=== PATIENT | female | born 1995 ===

== ENCOUNTER → 2021-12-12 11:25 | Outpatient (CLI) | payer BC, SELFPAY ==
[2021-12-12 13:25] LABS: Urine N gonorrhoeae NOT DETECTED
[2021-12-12 13:27] LABS: Urine Chlamydia NOT DETECTED
[2021-12-12 13:44] LABS: Pregnancy Test Urine Negative (Negative)
== END ==
PROVIDERS: Visit Provider Physician Assistant
DX: Z11.3 Encounter for screening for infections with a predominantly sexual mode of transmission (principal); N92.6 Irregular menstruation, unspecified
CPT/HCPCS: 81025; 87491; 87591

== ENCOUNTER → 2022-04-03 14:30 | Outpatient (CLI) | payer BC, SELFPAY ==
[2022-04-03 17:38] LABS: Urine N gonorrhoeae NOT DETECTED
[2022-04-03 17:41] LABS: Urine Chlamydia NOT DETECTED
== END ==
PROVIDERS: Visit Provider Physician Assistant
DX: Z11.3 Encounter for screening for infections with a predominantly sexual mode of transmission (principal); N89.8 Other specified noninflammatory disorders of vagina
CPT/HCPCS: 87210; 87491; 87591

== ENCOUNTER → 2022-11-12 10:15 | Outpatient (CLI) | payer BC, SELFPAY ==
[2022-11-12 13:12] LABS: Influenza A - CEPHEID Flu A NEGATIVE (NEGATIVE); Influenza B - CEPHEID Flu B NEGATIVE (NEGATIVE); Respiratory Syncytial Virus Negative (Negative)
[2022-11-12 13:14] LABS: COVID-19 CEPHEID 4-PLEX PCR Negative (Negative)
== END ==
PROVIDERS: Visit Provider Physician Assistant
DX: J02.9 Acute pharyngitis, unspecified (principal); Z20.822 Contact with and (suspected) exposure to COVID-19
CPT/HCPCS: 0241U; 87070; 87077; 87147; 87185

== ENCOUNTER → 2023-02-28 09:52 | Outpatient (CLI) | payer BC, SELFPAY ==
--- NOTE | 2023-02-28 | DI.RAD.S_ITS ---
PROCEDURE: XR ABDOMEN MIN 2V INDICATIONS: K59.00 TECHNIQUE: 2 views of the abdomen were acquired. COMPARISON: [facility], CT, ABDOMEN/PELVIS WITH CONTRAST, 06/27/2012, 10:20. FINDINGS: Nonobstructive bowel gas pattern. No evidence of pneumoperitoneum. No definite or obvious renal stone identified radiographically. Moderate-large amount of stool in the colon. Lumbosacral fusion changes. IMPRESSION: Nonobstructive bowel gas pattern. Dictated by: Tyler Bacon M.D. on 02/28/2023 at 12:56 Approved by: Tyler Bacon M.D. on 02/28/2023 at 13:01
== END ==
PROVIDERS: PCP Registered Nurse; Referring Provider Registered Nurse; Visit Provider Registered Nurse
DX: K59.00 Constipation, unspecified (principal)
CPT/HCPCS: 74019

== ENCOUNTER 2024-02-11 20:18 | Emergency (ER) | payer BC, SELFPAY ==
[2024-02-11 20:21] VITALS: BP 122/71; PULSE 84; RESP 18; TEMP 36.3; O2SAT 99; BMI 25.0
--- NOTE | 2024-02-11 20:33 | DI.RAD.S_ITS ---
PROCEDURE: XR TIBIA FUBULA RT 2V INDICATIONS: Rt leg injury TECHNIQUE: 2 views of the tibia and fibula were acquired. COMPARISON: None. FINDINGS: Bones: No fractures or dislocations. No suspicious bony lesions. Soft tissues: No suspicious soft tissue calcifications or masses. No radiopaque foreign body. IMPRESSION: No acute bony abnormality. Dictated by: Abimael Shah M.D. on 02/11/2024 at 20:53 Approved by: Abimael Shah M.D. on 02/11/2024 at 20:54
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
== END 2024-02-12 02:56 | disposition home or self-care (01) ==
PROVIDERS: Emergency Provider Emergency Medicine; PCP Registered Nurse
DX: S80.11XA Contusion of right lower leg, initial encounter (principal); V22.49XA Other motorcycle driver injured in collision with two- or three-wheeled motor vehicle in traffic accident, initial encounter
CPT/HCPCS: 73590; 99281; 99282

== ENCOUNTER 2025-01-27 19:48 | Observation (INO) | payer SELFPAY ==
[2025-01-27 20:16] VITALS: BP 132/77; PULSE 73; RESP 22; TEMP 36.5; O2SAT 100; BMI 25.0
--- NOTE | 2025-01-27 20:22 | DI.CT.S_ITS ---
PROCEDURE: CT ABDOMEN PELVIS WO CON INDICATIONS: lower abdominal pain; hx constipation TECHNIQUE: Axial sections were acquired from the lung bases to the pubic symphysis. Coronal and sagittal reformats were performed. For radiation dose reduction, the following was used: automated exposure control, adjustment of mA and/or kV according to patient size. COMPARISON: None. FINDINGS: Image quality: Diagnostic. Lower Chest: No significant findings. URINARY: Right Kidney: No stones or hydronephrosis. Right Ureter: No hydroureter. Left Kidney: No stones or hydronephrosis. Left Ureter: No hydroureter. Bladder: Normal wall thickness. No stones. ABDOMEN: Liver: No contour-deforming solid mass. Gallbladder: No radiopaque gallstones or wall thickening. Biliary ducts: No biliary dilation. Pancreas: No ductal dilation. Spleen: Size is within normal limits. Adrenal Glands: No adrenal nodules. Stomach and Bowel: Stomach is somewhat prominent with food residue. No small bowel obstruction. No significant diverticulosis. The appendix is probably visualized in the right lower quadrant. The appendix is a most likely seen and appears mildly dilated. There is trace free fluid in the right lower quadrant, (). Peritoneum: No abnormal intraperitoneal fluid. No free air. Ventral Wall: No hernia. Abdominal Nodes: No enlarged retroperitoneal or mesenteric lymph nodes. Vessels: Aorta and inferior vena cava are normal in size. PELVIS: Pelvic Organs: Anteverted uterus. Pelvic Nodes: Unremarkable. Miscellaneous: No inguinal hernias are seen. Bones: No suspicious osseous lesion. L5-S1 pedicle screw fixation. Anterior screws and intervertebral body spacer. IMPRESSION: 1. Concern for acute appendicitis. -This could be further evaluated with ultrasound or repeat CT abdomen pelvis with IV and oral contrast. 2. No hydronephrosis. No kidney stones. Comment: Findings were discussed with Adolfo Cazares at 9:01 p.m. Dictated by: Abimael Shah M.D. on 01/27/2025 at 20:52 Approved by: Abimael Shah M.D. on 01/27/2025 at 21:04
[2025-01-27 20:43] LABS: Add Manual Diff / Slide Review NO; Basophils Absolute Auto 100 /uL (0-100); Basophils Percent Auto 0.8 % (0-2); Eosinophils Absolute Auto 500 /uL (0-450); Hematocrit 40.9 % (36-46); Lymphocytes Absolute Auto 1800 /uL (1100-4500); Mean Corpuscular HGB Conc 34.3 % (30-36); Mean Corpuscular Hemoglobin 30.7 PG (26-34); Mean Corpuscular Volume 89.5 fL (80-100); Monocytes Absolute Auto 600 /uL (0-900); Monocytes Percent Auto 6.5 % (3-14); Neutrophils Absolute Auto 6100 /uL (1500-7000); Neutrophils Percent Auto 67.7 % (50-75); Platelet Count 168 X10^3/uL (150-400); Red Blood Cell Count 4.57 X10^6/uL (4.0-5.2); Red Cell Distribution Width 13.2 % (11.6-14.8)
[2025-01-27] MEDS: SODIUM CHLORIDE 0.9% 1,000 ML 1000 ML IV (20:47)
[2025-01-27 20:53] LABS: Alanine Aminotransferase 26 IU/L (<35); Albumin 4.9 g/dL (3.5-5.0); Albumin Globulin Ratio 1.5 (1.0-2.8); Alkaline Phosphatase 45 U/L (38-126); Aspartate Aminotransferase 36 IU/L (14-36); BUN Creatinine Ratio 16.7 (6-22); Bilirubin Total 0.5 mg/dL (0.2-1.3); Blood Urea Nitrogen 17 mg/dL (7-17); Calcium 9.6 mg/dL (8.4-10.2); Carbon Dioxide 27 mmol/L (22-32); Chloride 104 mmol/L (98-107); Estimated Glomerular Filt Rate > 60 mL/min (>60); Globulin 3.3 g/dL (1.7-4.1); Glucose 103 mg/dL (70-99); HEMOLYSIS < 15 (0-50); Lipase 91 U/L (23-300); Potassium 3.8 mmol/L (3.4-5.1); Sodium 139 mmol/L (137-145); Total Protein 8.2 g/dL (6.3-8.2)
--- NOTE | 2025-01-27 21:03 | PC.NURSE ---
Per Zay Mansfield; pt confided in him that she has had a bulimia relapse and thinks that might be causing some of her symptoms, but does not want this information disclosed to the friend that came in with her.
--- NOTE | 2025-01-27 22:06 | ED_ITS ---
HPI - Abdominal Pain General Chief Complaint: Abdominal Pain Stated Complaint: abd px Time Seen by Provider: 01/27/25 21:30 Source: patient Mode of arrival: Ambulatory History of Present Illness HPI narrative: 29-year-old female with history of anterior abdominal approach L4-L5 spinal fusion done at [facility] a few years ago, no other abdominopelvic surgeries, history of constipation, felt constipated recently, tried magnesium citrate, had loose stools earlier today, since 3:00 p.m. having increasing abdominal pain, low midline and then to the right side. No fevers or chills. Has had nausea with nonbloody emesis x2 episodes. Last bowel movement earlier today without black or red color. No injury trauma new activities. She does not take blood thinner medications. No vaginal bleeding. Related Data Allergies Allergy/AdvReac Type Severity Reaction Status Date / Time No Known Drug Allergies Allergy Unverified 11/12/22 10:02 Patient History Social History (System 02/16/22 @ 08:41 by Ciro Craig) household members: friend(s) Smoking Status: Never smoker Smoking Status: Never smoker alcohol intake frequency: holidays/special occasions only Exam Narrative Exam Narrative: GENERAL: Well-developed patient, in mild distress. HEAD: Atraumatic. Normocephalic. EYES: Pupils equal round and reactive. Extraocular motions intact. No scleral icterus. No injection or drainage. ENT: Nose without bleeding, purulent drainage. Throat without erythema, tonsillar hypertrophy or exudate. Airway patent. NECK: Trachea midline. Non tender CARDIOVASCULAR: Regular rate and rhythm without murmurs, gallops, or rubs. RESPIRATORY: Clear to auscultation. Breath sounds equal bilaterally. No wheezes, rales, or rhonchi. GASTROINTESTINAL: Tenderness right lower quadrant, nondistended, no guarding, bowel tones diminished without rushes or tinkles. EXTREMITIES: No edema or joint tenderness. BACK: Nontender without deformity or crepitance. No flank tenderness. NEURO: AOx3. Motor functions grossly nonfocal SKIN: No rash or erythema of visible areas Initial Vital Signs Initial Vital Signs: Vital Signs Temperature 97.7 F 01/27/25 20:16 Pulse Rate 73 01/27/25 20:16 Respiratory Rate 22 01/27/25 20:16 Blood Pressure 132/77 01/27/25 20:16 Pulse Oximetry 100 04/28/25 20:16 Oxygen Delivery Method Room Air 01/27/25 20:16 Course Orders Ordered: Acetaminophen (Acetaminophen 325 Mg Tablet) 650 mg PO Q6H INOCENTE Hydrocodone Bitart/Acetaminophen (Hydrocodone/Acet 5/325 Tablet) 1 tab PO Q6HR PRN PRN Reason: Pain, Moderate (4-6) Last Admin: 01/28/25 16:39 Dose: 1 tab Documented By: CLL Enoxaparin Sodium (Enoxaparin 40 Mg/0.4 Ml Syringe) 40 mg SUBCUT DAILY INOCENTE Hydromorphone HCl (Hydromorphone 2 Mg Tablet) 4 mg PO Q4HR PRN PRN Reason: Pain, Severe (7-10) Hydromorphone HCl (Hydromorphone 0.5 Mg Inj) 0.5 mg IV Q2H PRN PRN Reason: Pain, Severe (7-10) Ondansetron HCl (Ondansetron 4 Mg/2 Ml Inj) 4 mg IV Q8HR PRN PRN Reason: Nausea And Vomiting Oxycodone HCl (Oxycodone Ir 5 Mg Tablet) 5 mg PO Q3H PRN PRN Reason: Pain, Moderate (4-6) Discontinued Medications Acetaminophen (Acetaminophen 325 Mg Tablet) 975 mg PO NOW PRN PRN Reason: Pain, Moderate (4-6) Last Admin: 01/28/25 13:48 Dose: 975 mg Documented By: BS Bupivacaine HCl (Bupivacaine 0.5% (Pf) 30 Ml Vial) 30 ml INJ NOW ONE Stop: 01/28/25 15:13 Last Admin: 01/28/25 15:12 Dose: 8 ml Documented By: RT Hydromorphone HCl (Hydromorphone 1 Mg Inj) 0 mg IV Q5MIN PRN PRN Reason: Pain, Moderate (4-6) Hydroxyzine HCl (Hydroxyzine 50 Mg/Ml Inj) 25 mg IM NOW PRN PRN Reason: Pain, Mild (1-3) Sodium Chloride (Normal Saline 0.9%) 1,000 mls @ 1,000 mls/hr IV BOLUS ONE Stop: 01/27/25 21:35 Last Infusion: 01/27/25 22:15 Dose: Infused Documented By: Admin: 01/27/25 20:47 Dose: 1,000 mls/hr Documented By: MARY Piperacillin Sod/Tazobactam (Sod 4.5 gm/ Sodium Chloride) 100 mls @ 200 mls/hr IV NOW ONE Stop: 01/28/25 01:48 Last Infusion: 01/28/25 02:40 Dose: Infused Documented By: Admin: 01/28/25 02:03 Dose: 200 mls/hr Documented By: MARTÍN Lactated Ringer's (Lactated Ringers) 1,000 mls @ 125 mls/hr IV CONT INOCENTE Last Admin: 01/28/25 10:57 Dose: 125 mls/hr Documented By: Infusion: 01/28/25 10:57 Dose: Infused Documented By: Admin: 01/28/25 03:11 Dose: 125 mls/hr Documented By: MOON Lactated Ringer's (Lactated Ringers) 1,000 mls @ 42 mls/hr IV CONT INOCENTE Last Admin: 01/28/25 13:45 Dose: 42 mls/hr Documented By: MARQUES Cefazolin Sodium/Dextrose (Ancef) 100 mls @ 200 mls/hr IV NOW ONE Stop: 01/28/25 15:41 Last Infusion: 01/28/25 14:54 Dose: Infused Documented By: Admin: 01/28/25 14:49 Dose: 200 mls/hr Documented By: MILAN Ketorolac Tromethamine (Ketorolac 30 Mg/Ml Vial) 15 mg IV NOW ONE Stop: 01/28/25 02:10 Last Admin: 01/28/25 02:16 Dose: 15 mg Documented By: MARTÍN Meperidine HCl (Meperidine 50 Mg/Ml Inj) 25 mg IV PACUNOW PRN PRN Reason: Moderate pain or shivering Metoclopramide HCl (Metoclopramide 10 Mg/2 Ml Inj) 10 mg IV NOW PRN PRN Reason: Nausea And Vomiting Morphine Sulfate (Morphine 2 Mg/Ml Inj) 2 mg IV Q4HR PRN PRN Reason: Pain, Moderate (4-6) Ondansetron HCl (Ondansetron 4 Mg/2 Ml Inj) 4 mg IV NOW PRN PRN Reason: Nausea And Vomiting Ondansetron HCl (Ondansetron 4 Mg Odt) 4 mg PO NOW PRN PRN Reason: Nausea And Vomiting Ondansetron HCl (Ondansetron 4 Mg/2 Ml Inj) 4 mg IV NOW PRN PRN Reason: Nausea And Vomiting Oxycodone HCl (Oxycodone Ir 5 Mg Tablet) 5 mg PO PACUNOW PRN PRN Reason: Mild or moderate pain Vital Signs Vital signs: Vital Signs - 8 hr 01/27/25 20:16 01/27/25 22:56 01/27/25 22:57 Temperature 97.7 F Pulse Rate 73 69 76 Respiratory Rate 22 Blood Pressure 132/77 113/65 Pulse Oximetry 100 100 100 Oxygen Delivery Method Room Air 01/27/25 22:57 01/27/25 23:00 01/27/25 23:00 Temperature Pulse Rate 66 Respiratory Rate Blood Pressure 113/65 114/65 Pulse Oximetry 100 Oxygen Delivery Method 01/27/25 23:30 01/27/25 23:38 01/27/25 23:38 Temperature Pulse Rate 56 L 76 Respiratory Rate Blood Pressure 132/67 Pulse Oximetry 100 99 Oxygen Delivery Method Room Air 01/28/25 00:17 01/28/25 00:17 01/28/25 00:30 Temperature Pulse Rate 55 L 53 L Respiratory Rate Blood Pressure 116/66 Pulse Oximetry 98 99 Oxygen Delivery Method Room Air 01/28/25 00:30 01/28/25 01:00 01/28/25 01:00 Temperature Pulse Rate 60 Respiratory Rate Blood Pressure 121/75 116/56 L Pulse Oximetry 95 Oxygen Delivery Method Room Air MDM - Abdominal Pain Lab Data Lab results narrative: White blood cell count 9000, hemoglobin 14, platelets 168,000. Glucose 103. Renal function normal. Electrolytes normal. Serum CO2 27 not decreased. Liver functions and lipase normal. Urine dip negative. Urine test negative. 01/27/25 20:30 01/27/25 20:30 Labs: Lab Results 01/27/25 01/27/25 Range/Units 20:30 22:31 WBC 9.0 (4.5-11.0) X10^3/uL RBC 4.57 (4.0-5.2) X10^6/uL Hgb 14.0 (12.0-16.0) g/dL Hct 40.9 (36-46) % MCV 89.5 (80-100) fL MCH 30.7 (26-34) PG MCHC 34.3 (30-36) % RDW 13.2 (11.6-14.8) % Plt Count 168 (150-400) X10^3/uL Neut % (Auto) 67.7 (50-75) % Lymph % (Auto) 20.0 L (25-40) % [place] % (Auto) 6.5 (3-14) % Eos % (Auto) 5.0 H (2-4) % Baso % (Auto) 0.8 (0-2) % Neut # (Auto) 6100 (8347-6070) /uL Lymph # (Auto) 1800 (5622-4869) /uL [place] # (Auto) 600 (0-900) /uL Eos # (Auto) 500 H (0-450) /uL Baso # (Auto) 100 (0-100) /uL Sodium 139 (137-145) mmol/L Potassium 3.8 (3.4-5.1) mmol/L Chloride 104 (98-107) mmol/L Carbon Dioxide 27 (22-32) mmol/L BUN 17 (7-17) mg/dL Creatinine 1.02 (0.52-1.04) mg/dL Estimated GFR > 60 (>60) mL/min BUN/Creatinine Ratio 16.7 (6-22) Glucose 103 H (70-99) mg/dL Calcium 9.6 (8.4-10.2) mg/dL Total Bilirubin 0.5 (0.2-1.3) mg/dL AST 36 (14-36) IU/L ALT 26 (<35) IU/L Alkaline Phosphatase 45 (38-126) U/L Total Protein 8.2 (6.3-8.2) g/dL Albumin 4.9 (3.5-5.0) g/dL Globulin 3.3 (1.7-4.1) g/dL Albumin/Globulin Ratio 1.5 (1.0-2.8) Lipase 91 (23-300) U/L HCG, Quant Cancelled Urine RBC 0-1/hpf (0-5/HPF) Urine WBC 0-1/hpf (0-5/HPF) Ur Squamous Epith Cells 1-5 /hpf (0-5/HPF) Amorphous Sediment 3+ Urine Bacteria Moderate (10-30) H (None) Ur Culture Indicated? Cult not indicated Vol Urine Centrifuged 10ml (spun) Point of care testing: Point of Care Testing Test Results Negative Urine Dip Bedside Urine Glucose Negative Bedside Urine Bilirubin - Negative Bedside Urine Ketone - Negative Urine Specific P[place]ree 1.010 Bedside Urine Occult Blood - Negative Bedside Urine pH 8.5 Bedside Urine Protein +/- 15 Bedside Urine Urobilinogen - Negative Bedside Urine Nitrite - Negative Bedside Urine Leukocytes - Negative Esterase Imaging Data CT scan - abdomen/pelvis: Radiologist's Impression: Close Abdomen/Pelvis CT (Signed) CallAbimael - 01/27/25 Launch?[address] [address] [address] Scan Report Signed Patient: Lidya Mckinnon MR#: [id number] : 1995 Acct:[id number] Age/Sex: 29 / F Date of Service: 01/27/25 Loc: ED Accession Number: [id number] Procedure: CT abdomen pelvis wo con Ordering Provider: Adolfo Cazares MD PROCEDURE: CT ABDOMEN PELVIS WO CON INDICATIONS: lower abdominal pain; hx constipation TECHNIQUE: Axial sections were acquired from the lung bases to the pubic symphysis. Coronal and sagittal reformats were performed. For radiation dose reduction, the following was used: automated exposure control, adjustment of mA and/or kV according to patient size. COMPARISON: None. FINDINGS: Image quality: Diagnostic. Lower Chest: No significant findings. URINARY: Right Kidney: No stones or hydronephrosis. Right Ureter: No hydroureter. Left Kidney: No stones or hydronephrosis. Left Ureter: No hydroureter. Bladder: Normal wall thickness. No stones. ABDOMEN: Liver: No contour-deforming solid mass. Gallbladder: No radiopaque gallstones or wall thickening. Biliary ducts: No biliary dilation. Pancreas: No ductal dilation. Spleen: Size is within normal limits. Adrenal Glands: No adrenal nodules. Stomach and Bowel: Stomach is somewhat prominent with food residue. No small bowel obstruction. No significant diverticulosis. The appendix is probably visualized in the right lower quadrant. The appendix is a most likely seen and appears mildly dilated. There is trace free fluid in the right lower quadrant, (). Peritoneum: No abnormal intraperitoneal fluid. No free air. Ventral Wall: No hernia. Abdominal Nodes: No enlarged retroperitoneal or mesenteric lymph nodes. Vessels: Aorta and inferior vena cava are normal in size. PELVIS: Pelvic Organs: Anteverted uterus. Pelvic Nodes: Unremarkable. Miscellaneous: No inguinal hernias are seen. Bones: No suspicious osseous lesion. L5-S1 pedicle screw fixation. Anterior screws and intervertebral body spacer. IMPRESSION: 1. Concern for acute appendicitis. -This could be further evaluated with ultrasound or repeat CT abdomen pelvis with IV and oral contrast. 2. No hydronephrosis. No kidney stones. Comment: Findings were discussed with Adolfo Cazares at 9:01 p.m. Dictated by: Abimael Shah M.D. on 01/27/2025 at 20:52 Approved by: Abimael Shah M.D. on 01/27/2025 at 21:04 CT abdomen and pelvis repeat study with oral contrast: Radiologist's Impression: [place] [address] CT Scan Report Signed Patient: Lidya Mckinnon MR#: [id number] : 1995 Acct:[id number] Age/Sex: 29 / F Date of Service: 01/27/25 Loc: ED Accession Number: [id number] Procedure: CT abdomen pelvis wo con Ordering Provider: Adolfo Cazares MD PROCEDURE: CT ABDOMEN PELVIS WO CON INDICATIONS: RLQ pain, surgery request oral contrast rpt study TECHNIQUE: Axial sections were acquired from the lung bases to the pubic symphysis. Coronal and sagittal reformats were performed. For radiation dose reduction, the following was used: automated exposure control, adjustment of mA and/or kV according to patient size. Oral contrast is present. COMPARISON: [facility], CT, CT ABDOMEN PELVIS WO CON, 01/27/2025, 20:34. FINDINGS: Image quality: Diagnostic. Lower Chest: No significant findings. ABDOMEN: Liver: No contour-deforming solid mass. Gallbladder: No radiopaque gallstones or wall thickening. Biliary ducts: No biliary dilation. Pancreas: No ductal dilation. Spleen: Size is within normal limits. Adrenal Glands: No adrenal nodules. Kidneys: No hydronephrosis. No stones. Stomach and Bowel: The appendix is dilated up to 0.9 cm, (01/28). There is adjacent fat stranding and fluid. No free air is seen. The appendix is better seen. Oral contrast mostly in the stomach and small bowel in the left abdomen. No small bowel obstruction. Peritoneum: No abnormal intraperitoneal fluid. No free air. Ventral Wall: No hernia. Abdominal Nodes: No enlarged retroperitoneal or mesenteric lymph nodes. Vessels: Aorta and inferior vena cava are normal in size. PELVIS: Pelvic Organs: Anteverted uterus. Bladder: No stone. Pelvic Nodes: Unremarkable. Miscellaneous: No inguinal hernias are seen. Bones: No suspicious osseous lesion. L5-S1 pedicle screw fixation. Anterior screws with intervertebral body spacer. IMPRESSION: Acute appendicitis. Dictated by: Abimael Shah M.D. on 01/28/2025 at 1:13 Approved by: Abimael Shah M.D. on 01/28/2025 at 1:18 MDM Narrative Medical decision making narrative: 29-year-old female with lower abdominal pain since this afternoon, central and low, then toward the right side. Some tenderness right lower quadrant on palpation. Prior anterior approach L4-L5 lumbar spine fusion procedure, otherwise no prior abdominopelvic surgeries. No fever on triage, sirs screen negative. White blood cell count not elevated. test negative. Liver functions normal. CT abdomen and pelvis apparently ordered from triage. CT abdomen and pelvis suspicious for appendicitis per phone call from Radiology. See radiology report. We will contact surgery. Keep NPO. Patient declines pain medications for now. Patient was given IV fluid bolus after triage. Case discussed with surgery , states that he thinks case seems atypical, advises repeat CT abdomen and pelvis with oral contrast. Patient agreeable. CT abdomen and pelvis with oral contrast repeat study also shows appendicitis. On repeat exam patient is still has tenderness right lower quadrant. No rebound tenderness. We will contact surgery again. Keep NPO. Case discussed with surgery Dr Hinojosa, will start IV Zosyn, admit to his seervice, likely surgery in the morning. Patient agrees with plan. IV Zosyn. Maintenance IVF, keep NPO. Admit to surgery service. Discharge Plan Departure Patient Disposition: Admitted to Surgery Clinical Impression: Acute appendicitis Qualifiers: Acute appendicitis type: unspecified acute appendicitis type Qualified Code(s): K35.80 - Unspecified acute appendicitis Admit Date/Time: 01/28/25 02:07 Admit Provider: Cade Hinojosa
[2025-01-27 22:53] LABS: Urine Volume 10mL (spun); WBC Urine 0-1/HPF (0-5/HPF)
[2025-01-27 22:56] VITALS: BP 113/65; PULSE 69; O2SAT 100
[2025-01-27 22:56] LABS: Amorphous Sediment Urine 3+; Bacteria Urine Moderate (10-30); Culture Indicated Urine Cult Not Indicated; RBC Urine 0-1/HPF (0-5/HPF); Squamous Epithelial Cell Urine 1-5 /HPF (0-5/HPF)
[2025-01-27 22:57] VITALS: BP 113/65; PULSE 76; O2SAT 100
--- NOTE | 2025-01-27 22:57 | DI.CT.S_ITS ---
PROCEDURE: CT ABDOMEN PELVIS WO CON INDICATIONS: RLQ pain, surgery request oral contrast rpt study TECHNIQUE: Axial sections were acquired from the lung bases to the pubic symphysis. Coronal and sagittal reformats were performed. For radiation dose reduction, the following was used: automated exposure control, adjustment of mA and/or kV according to patient size. Oral contrast is present. COMPARISON: [facility], CT, CT ABDOMEN PELVIS WO CON, 01/27/2025, 20:34. FINDINGS: Image quality: Diagnostic. Lower Chest: No significant findings. ABDOMEN: Liver: No contour-deforming solid mass. Gallbladder: No radiopaque gallstones or wall thickening. Biliary ducts: No biliary dilation. Pancreas: No ductal dilation. Spleen: Size is within normal limits. Adrenal Glands: No adrenal nodules. Kidneys: No hydronephrosis. No stones. Stomach and Bowel: The appendix is dilated up to 0.9 cm, (01/28). There is adjacent fat stranding and fluid. No free air is seen. The appendix is better seen. Oral contrast mostly in the stomach and small bowel in the left abdomen. No small bowel obstruction. Peritoneum: No abnormal intraperitoneal fluid. No free air. Ventral Wall: No hernia. Abdominal Nodes: No enlarged retroperitoneal or mesenteric lymph nodes. Vessels: Aorta and inferior vena cava are normal in size. PELVIS: Pelvic Organs: Anteverted uterus. Bladder: No stone. Pelvic Nodes: Unremarkable. Miscellaneous: No inguinal hernias are seen. Bones: No suspicious osseous lesion. L5-S1 pedicle screw fixation. Anterior screws with intervertebral body spacer. IMPRESSION: Acute appendicitis. Dictated by: Abimael Shah M.D. on 01/28/2025 at 1:13 Approved by: Abimael Shah M.D. on 01/28/2025 at 1:18
[2025-01-27 23:00] VITALS: BP 114/65; PULSE 66; O2SAT 100
[2025-01-27 23:30] VITALS: PULSE 56; O2SAT 100
[2025-01-27 23:38] VITALS: BP 132/67; PULSE 76; O2SAT 99
[2025-01-28] VITALS (17 sets, daily range): BP systolic 99–131; BP diastolic 54–80; PULSE 53–86; RESP 13–18; TEMP 35.7–36.7; O2SAT 92–100; BMI 25.0
--- NOTE | 2025-01-28 | PATH_ITS ---
[facility] Accession Number: [id number] No. of containers..01 Tissue . 01 Material submitted: . appendix - APPENDIX . 01 Diagnosis: APPENDIX, APPENDECTOMY: Acute appendicitis and periappendicitis. MRV 01/31/2025 1537 Local . 01 Electronically signed: . Vaishnavi Robertson MD, Pathologist NPI- [id number] . 01 Gross description: . Received in formalin with two identifiers and appendix, is a sherman, vermiform appendix, 5.2 cm in length by 1.3 cm in diameter. The serosa is sherman to violaceous and roughened. The margin is inked blue and sectioning reveals a patent pinpoint lumen with no contents grossly identified. The pascual average 0.3 cm thick with no perforation or lesions identified. Corporate Operations Compliance Manager sections to include the margin, entire bisected distal tip, and cross section are submitted in A1. ([id number]) /MRV 01/30/2025 1907 Local . 01 Pathologist provided ICD-10: K35.80 . 01 CPT . 600000 Specimen Comment: A courtesy copy of this report has been sent to [facility] Pathology Performed at: [address] [facility], [place], [place] [address] MD Jax Stauffer MD Phone: [phone]
[2025-01-28] MEDS: PIPERACILLIN/TAZO 4.5 GM in SODIUM CHLORIDE 0.9% 100 ML IV (02:03)
[2025-01-28] MEDS: KETOROLAC 30 MG/ML VIAL 15 MG IV (02:16)
[2025-01-28] MEDS: LACTATED RINGERS 1,000 ML 125 ML IV ×2 (03:11→10:57)
--- NOTE | 2025-01-28 05:27 | PC.NURSE ---
Admit/NOC Shift Note- Patient arrived to room via wheelchair from ER. Patient alert and oriented and able to make needs known to staff. Admit questions done, physical assessment done, medications reviewed, and skin check completed. Patient oriented to bed and bed controls, room, lights, bathroom, lights, phone, menu, and call tucker/tv remote. Patient ok to be independent in room. Patient agrees to call for assistance as needed. Safety measures in place. Call tucker within reach. Will continue to monitor.
--- NOTE | 2025-01-28 07:53 | P.HP_ITS ---
History of Present Illness History of Present Illness Chief complaint: abd px Narrative: Otherwise well 29-year-old female with a 16 hour history of abdominal pain which was initially bilateral lower quadrants subsequently localized to the right side. She presented to the ED for evaluation where lower abdominal tenderness was identified. She had a white count of [address] abdomen pelvis was initially equivocal. The patient has a history of an L4-5 fusion 10 years ago which may have obscured findings. A repeat CT abdomen pelvis with oral contrast was successful in clarifying the issue. The patient was noted to have a dilated appendix with mild periappendiceal inflammatory change. She is admitted for definitive management of an apparent case of acute appendicitis. [facility], [facility] Social History (System 02/16/22 @ 08:41 by Ciro Craig) household members: friend(s) Smoking Status: Never smoker Meds Home Medications and Allergies Allergies Allergy/AdvReac Type Severity Reaction Status Date / Time No Known Drug Allergies Allergy Unverified 11/12/22 10:02 Review of Systems Review of Systems Narrative: Comprehensive review of systems negative to directed questioning. Exam Vital Signs (past 8 hours): - 01/28/25 00:17 01/28/25 00:17 01/28/25 00:30 Temperature Pulse Rate 55 L 53 L Respiratory Rate Blood Pressure 116/66 Pulse Oximetry 98 99 Oxygen Delivery Method Room Air 01/28/25 00:30 01/28/25 01:00 01/28/25 01:00 Temperature Pulse Rate 60 Respiratory Rate Blood Pressure 121/75 116/56 L Pulse Oximetry 95 Oxygen Delivery Method Room Air 01/28/25 01:30 01/28/25 01:30 01/28/25 02:00 Temperature Pulse Rate 62 Respiratory Rate Blood Pressure 118/72 Pulse Oximetry 98 99 Oxygen Delivery Method 01/28/25 02:07 01/28/25 02:07 01/28/25 02:57 Temperature 97.1 F L Pulse Rate 70 60 Respiratory Rate 16 16 Blood Pressure 112/54 L 112/60 Pulse Oximetry 100 99 Oxygen Delivery Method Room Air Oxygen Delivery Method Room Air Narrative Exam Narrative: In general this is well-nourished well-developed female alert and oriented x3 who appears to be in reasonable comfort. Head is normocephalic and atraumatic. Neck is supple. Back is without CVA or spinous process tenderness. Lungs are clear to auscultation. Heart has a regular rate and rhythm with no murmur or gallop. Chest is symmetric nontender with normal inspiratory and expiratory excursion. Abdomen is soft with mild right lower quadrant tenderness, no guarding. No Rovsing sign. Extremities manifests full range of motion. Neurological exam is nonfocal. Skin is clear and there is no adenopathy. CT findings demonstrate an edematous appendix with mild periappendiceal inflammatory changes. Objective Labs 01/27/25 20:30 01/27/25 20:30 Labs: Laboratory Results - last 24 hr 01/27/25 01/27/25 20:30 22:31 WBC 9.0 RBC 4.57 Hgb 14.0 Hct 40.9 MCV 89.5 MCH 30.7 MCHC 34.3 RDW 13.2 Plt Count 168 Neut % (Auto) 67.7 Lymph % (Auto) 20.0 L [place] % (Auto) 6.5 Eos % (Auto) 5.0 H Baso % (Auto) 0.8 Neut # (Auto) 6100 Lymph # (Auto) 1800 [place] # (Auto) 600 Eos # (Auto) 500 H Baso # (Auto) 100 Sodium 139 Potassium 3.8 Chloride 104 Carbon Dioxide 27 BUN 17 Creatinine 1.02 Estimated GFR > 60 BUN/Creatinine Ratio 16.7 Glucose 103 H Calcium 9.6 Total Bilirubin 0.5 AST 36 ALT 26 Alkaline Phosphatase 45 Total Protein 8.2 Albumin 4.9 Globulin 3.3 Albumin/Globulin Ratio 1.5 Lipase 91 HCG, Quant Cancelled Urine RBC 0-1/hpf Urine WBC 0-1/hpf Ur Squamous Epith Cells 1-5 /hpf Amorphous Sediment 3+ Urine Bacteria Moderate (10-30) H Ur Culture Indicated? Cult not indicated Vol Urine Centrifuged 10ml (spun) Assessment & Plan Assessment and plan (1) Acute appendicitis: Qualifiers: Acute appendicitis type: unspecified acute appendicitis type Qualified Code(s): K35.80 - Unspecified acute appendicitis Status: Acute Plan I have recommended a laparoscopic attempted appendectomy. Alternatives, risks and benefits were discussed in detail. Questions were answered. Patient voices understanding, asked appropriate questions and desires to proceed as I have outlined. We will accommodate her when a room can be made available. Time-Based Coding :: [TOTAL MINUTES] spent with patient and on the chart (including review of chart, obtaining history, exam, reviewing outside data, placing orders, documenting exam and treatment plan, and counseling patient) on [DATE]. 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
--- NOTE | 2025-01-28 08:58 | PC.NURSE ---
Addendum entered by Shahrzad Heath R.N. 01/28/25 17:36: Patient back from surgery, pain 6/10, given 1 vicodin with good pain control. Patients 3 lap sites are all cdi and dry. She is hl and is eating some dinner now. O nausea. Original Note: Assess- Patient is alert and oriented x4, her bt are hypoactive, she states that she is having a small amount of pain, offered Morphine iv but states that she does not want it at this time. Up ad dilip. IVF infusing LR and patient is tolerating this well.
[2025-01-28] MEDS: LACTATED RINGERS 1,000 ML 42 ML IV (13:45)
[2025-01-28] MEDS: ACETAMINOPHEN 325 MG TABLET 975 MG PO (13:48)
[2025-01-28] MEDS: CEFAZOLIN 2 GM/100 ML PREMIX 100 ML IV (14:49)
--- NOTE | 2025-01-28 15:08 | SUR.OPER ---
Supine on padded OR bed, head on pillow, arms padded and tucked at sides, legs uncrossed, safety belt at thigh, tape over blanket over lower legs .
[2025-01-28] MEDS: BUPIVACAINE 0.5% (PF) 30 ML VIAL INJ (15:12)
--- NOTE | 2025-01-28 16:17 | P.OP_ITS ---
Operative Date/Time/Diagnoses Date of procedure: 01/28/25 Time of procedure: 13:00 Pre-op diagnosis: Acute appendicitis Post-op diagnosis: same Procedure & Clinicians Procedure: Laparoscopic appendectomy Same procedure as scheduled: Yes Surgeon: Cade Hinojosa Click Yes if Unassisted: Yes Anesthesia Type: General Operative Notes Findings: Acute appendicitis Closure Type: primary Specimen(s): other (Vermiform appendix) Estimated Blood Loss (mL): 10 Blood products transfused: none Procedure in detail: After obtaining informed consent properly identifying the patient patient was transported to the operating room and placed on the table in the supine position. general endotracheal anesthesia was induced and the abdomen was prepped and draped in the usual sterile manner. Time-out protocol was observed. A curvilinear supraumbilical incision of 2 cm length was made with an 11 blade through the full-thickness of the skin. Electrocautery was used to carry the incision down onto the abdominal wall fascia retraction sutures of 0 Vicryl were placed on either side of midline. Peritoneotomy was made under direct vision between the traction sutures and the surgeon's finger was introduced to ensure peritoneal entry. A 10 mm Maharaj cannula was installed and was secured by inflating the balloon at the cannulas tip. Pneumoperitoneum was instilled in the 5 mm 30 degree angled scope was passed. The posterior surface of the infraumbilical abdominal wall was visualized 2 5 mm ports were placed under direct laparoscopic vision. The 1st was placed 2/[address] from the umbilicus to the pubis in the midline, and the 2nd was placed mid way between the 1st 5 mm port in the umbilicus, 2 fingerbreadths left of midline. The table was placed in Trendelenburg position canted to the patient's left. The appendix was identified. The cecum and appendix were mobilized medially using sharp diss ection in the lateral adhesions with a LigaSure. Next the mesoappendix was taken with the LigaSure down to the confluence of the appendiceal base and cecal wall. The 5 mm scope was withdrawn from the Maharaj and was positioned in the left lower quadrant port. An echelon stapler was passed through the Maharaj and was applied across the confluence of the appendiceal base and cecal wall. The device was closed and fired. It was opened and withdrawn from the abdomen. An Endo-Catch specimen extractor was passed through the Maharaj and the specimen was bagged under direct laparoscopic vision. The Maharaj balloon was deflated and the son Endo-Catch and specimen were withdrawn from the supraumbilical port site as a unit. Specimen was passed from the field and the Maharaj in 5 mm 30 degree scope were restored to their original positions. Perfect hemostasis was obtained with the LigaSure the op and the operative field was copiously irrigated. All irrigant was evacuated. The pelvis was next visualized, was irrigated and all irrigant evacuated. All laparoscopic equipment was withdrawn under direct laparoscopic vision and the ports were withdrawn. Pneumoperitoneum was evacuated. The supraumbilical fascial defect was closed with a running 0 Prolene. Skin wounds were closed with inverted deep dermal 3-0 Vicryl sutures and Dermabond. Field blocks of 0.5% Marcaine were instilled. The patient was transported to the recovery room extubated and awake having tolerated the procedure well. Complications: none Post-operative Condition: stable Disposition: PACU Plan for aftercare: Observe patient overnight, advance diet. Discharge patient when pain is well controlled, tolerant of a regular diet and ambulatory.
[2025-01-28] MEDS: HYDROCODONE/ACET 5/325 TABLET 1 TAB PO (16:39)
[2025-01-28] MEDS: ACETAMINOPHEN 325 MG TABLET 650 MG PO (22:17)
[2025-01-29] MEDS: ACETAMINOPHEN 325 MG TABLET 650 MG PO (04:09)
[2025-01-29 05:49] VITALS: BP 102/57; PULSE 50; RESP 16; TEMP 36; O2SAT 100
--- NOTE | 2025-01-29 08:00 | PM.PN.IH.1 ---
Subjective Subjective Interval history: Feels well. Less pain than preoperatively. Pain adequately controlled with Tylenol. Tolerant of regular diet. Exam Vital Signs (past 8 hours): - 01/29/25 05:49 Temperature 96.8 F L Pulse Rate 50 L Respiratory Rate 16 Blood Pressure 102/57 L Pulse Oximetry 100 Oxygen Flow Rate 0 Oxygen Delivery Method Room Air Oxygen Flow Rate 0 Narrative Exam Narrative: Lungs are clear to auscultation. Heart has a regular rate and rhythm with no murmur or gallop. Abdomen is soft with appropriate incisional tenderness, and normal bowel sounds. Dressings are dry. Objective Labs 01/27/25 20:30 01/27/25 20:30 COUNTS INCLUDE 234 BEDS AT THE [facility] Social History (System 02/16/22 @ 08:41 by Ciro Craig) household members: friend(s) Smoking Status: Never smoker Assessment & Plan Assessment and plan (1) Acute appendicitis: Qualifiers: Acute appendicitis type: unspecified acute appendicitis type Qualified Code(s): K35.80 - Unspecified acute appendicitis Status: Acute Plan Uneventful recovery ongoing postop day 1 from laparoscopic appendectomy. Patient is discharged home and will follow up in 1 week. Time-Based Coding :: [TOTAL MINUTES] spent with patient and on the chart (including review of chart, obtaining history, exam, reviewing outside data, placing orders, documenting exam and treatment plan, and counseling patient) on [DATE]. 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
--- NOTE | 2025-01-29 08:16 | P.DS_ITS ---
History of Present Illness History of Present Illness Chief complaint: abd px Narrative: Otherwise well 29-year-old female with a 16 hour history of abdominal pain which was initially bilateral lower quadrants subsequently localized to the right side. She presented to the ED for evaluation where lower abdominal tenderness was identified. She had a white count of [address] abdomen pelvis was initially equivocal. The patient has a history of an L4-5 fusion 10 years ago which may have obscured findings. A repeat CT abdomen pelvis with oral contrast was successful in clarifying the issue. The patient was noted to have a dilated appendix with mild periappendiceal inflammatory change. She is admitted for definitive management of an apparent case of acute appendicitis. Discharge Providers Provider Date of admission: 01/28/25 02:07 Discharge Date: 01/29/25 Primary care physician: RAFAEL Ewing Discharge provider: Cade Hinojosa MD Summary Hospital Course Discharge Diagnosis: Acute appendicitis Hospital Course: Patient was admitted. Preoperative evaluation demonstrated no contraindication to proceeding with urgent intervention. On the afternoon of the , the patient was taken to the operating room where laparoscopic appendectomy was undertaken under general endotracheal anesthesia. Intraoperative findings consistent of acute appendicitis. The procedure was uncomplicated and well tolerated by the patient. She was transported to the recovery room extubated and awake. Her postoperative course was characterized by rapid recovery. She tolerated a clear liquid diet the afternoon after surgery and a regular diet the evening after surgery. She is remained ambulatory, afebrile and without nausea or vomiting. She is receiving adequate pain control with the use of Tylenol. She is discharged to home in good condition on the morning of the and will follow up in 1 week. Exam Vital Signs (past 8 hours): - 01/29/25 05:49 Temperature 96.8 F L Pulse Rate 50 L Respiratory Rate 16 Blood Pressure 102/57 L Pulse Oximetry 100 Oxygen Flow Rate 0 Oxygen Delivery Method Room Air Oxygen Flow Rate 0 Objective Labs 01/27/25 20:30 01/27/25 20:30 [facility] Social History (System 02/16/22 @ 08:41 by Ciro Craig) household members: friend(s) Smoking Status: Never smoker Discharge Plan Discharge Plan Patient Disposition: Home Provider Discharge Comment: Light activity for 1 week. Shower normally. Follow-up in surgery clinic 1 week for wound check and review of pathology. Discharge orders & Medications Follow up/Referrals: Meslin,Kristy S, SEMI CONDUCTOR ASSEMBLER [Primary Care Provider] - Visit Report/Discharge Packet Instructions: DI for an Appendectomy, DI for Laparoscopy Stand Alone Forms: Patient Portal/API, Stroke Signs & Symptoms, Surgery Discharge Discharge Data Primary Care Provider: Krisyt Chun Attending Provider: Cade Hinojosa Admit Date/Time: 01/28/25 02:07 Quality VTE Deep Vein Thrombosis/Pulmonary Embolism Present on Admission: No IH PROFEE Charge Codes Discharge inpatient/observation: [id number]
--- NOTE | 2025-01-29 10:12 | CM.DPC ---
DCP Cont. Reviewed EMR and team rounds for status updates. Pt has been medically cleared for home d/c. Her roommate will be transporting her home. No further CM d/c assistance or resource needs are indicated at this time.
--- NOTE | 2025-01-29 10:30 | PC.NURSE ---
Day shift: Pt left before 1000 today. Pain well controlled per MAR. Has all personal belongings. NO new MD scripts. Paperwork signed and all questions answered. Taken out via WC by [email or web address]. Pt has friend driving. 923 was time that she left.
== END 2025-01-29 09:24 | disposition home or self-care (01) ==
LOC: ED 01-28 01:47 → AC 01-28 02:08
PROVIDERS: Admitting Provider Surgery; Emergency Provider Emergency Medicine; PCP Registered Nurse; Visit Provider Surgery
PROC: 0DTJ4ZZ Resection of Appendix, Percutaneous Endoscopic Approach (ICD-10-PCS; CPT 44970; principal; 2025-01-28 11:30)
DX: K35.80 Unspecified acute appendicitis (principal)
CPT/HCPCS: 44970; 36415; 74176; 80053; 81003; 81015; 81025; 83690; 85025; 96361; 96365; 96375; 99222; 99284; G0378; J0690; J1100; J1885; J2405; J2543; J2704; J3010; J3490